=== PATIENT | female | born 1945 | race Caucasian/White ===

== ENCOUNTER 2016-10-21 08:52 | Outpatient (CLI) | payer MEDICARE ==
[2016-10-21 12:52] LABS: Hemoglobin A1c 5.7 % (4.0-6.0)
== END 2016-10-21 08:53 | disposition home or self-care (01) ==
LOC: NAVSJIPCSP 08:52
PROVIDERS: ATTEND Internal Medicine
DX: E11.40 Type 2 diabetes mellitus with diabetic neuropathy, unspecified (principal); E78.5 Hyperlipidemia, unspecified; Z79.899 Other long term (current) drug therapy
CPT/HCPCS: 36415; 80061; 83036

== ENCOUNTER 2017-01-06 09:23 | Outpatient (CLI) | payer MEDICARE ==
[2017-01-06 13:10] LABS: #Eosinphils 0.1 thou/uL (0.0-0.7); #Monocytes 0.5 thou/uL (0.11-0.59); #Neutrophils 5.7 thou/uL (1.40-6.50); %Basophils 0.4 % (0.0-1.0); %Eosinophils 1.6 % (0.0-10.0); %Lymphocytes 23.6 % (21.0-51.0); %Monocytes 5.7 % (0.0-10.0); %Neutrophils 68.6 % (42.0-75.0); Hemoglobin 12.2 g/dL (12.0-16.0); Mean Corpuscular HGB CONC 32.4 g/dL (32.0-36.0); Mean Corpuscular Hemoglobin 27.9 pg (27.0-31.0); Mean Corpuscular Volume 86.3 fl (81.0-99.0); Mean Platelet Volume 8.1 fL (7.4-10.4); Platelet Count 292 thou/uL (130-400); RBC Distribution Width 13.4 % (11.5-14.5); Red Blood Cell (RBC) Count 4.37 mill/uL (4.20-5.40); White Blood Cell (WBC) Count 8.3 thou/uL (4.8-10.8)
[2017-01-06 13:43] LABS: ALT (SGPT) 20 U/L (0-55); AST (SGOT) 16 U/L (5-34); Albumin 4.3 g/dL (3.4-4.8); Alkaline Phosphatase 90 U/L (40-150); Anion Gap 17 mmol/L (10-20); BUN (Urea Nitrogen) 12 mg/dL (9.8-20.1); Bilirubin, Total 0.4 mg/dL (0.2-1.2); Calc. Creatinine Clearance 0 mL/min (70-130); Calcium 9.3 mg/dL (7.8-10.44); Carbon Dioxide 22 mmol/L (23-31); Cardiac Risk 3.4 (Less than 4.5); Chloride 108 mmol/L (98-107); Cholesterol 172 mg/dL (< 200 Desired); Estimated GFR-MDRD 81; Globulin 2.7 g/dL (2.4-3.5); Glucose 113 mg/dL (83-110); HDL Cholesterol 51 mg/dL (>60 Neg Risk); LDL Cholesterol, Calculated 98 mg/dL; Potassium 4.3 mmol/L (3.5-5.1); Sodium 143 mmol/L (136-145); Triglycerides 117 mg/dL (Less than 150)
[2017-01-06 13:44] LABS: Bilirubin Negative (Negative); Blood, Urine Negative (Negative); Clarity Clear (Clear); Glucose, Urine (Dipstick) Negative (Negative); Leukocyte Negative (Negative); Nitrite Negative (Negative); Protein, Urine (Dipstick) Negative (Neg-Trace); Specific Gravity, Urine 1.015 (1.005-1.030); Urobilinogen 0.2 mg/dL (0.2-1.0)
[2017-01-06 18:26] LABS: Creatinine, Urine 75.21 mg/dL (47-110); Microalbumin Urine Less than 1.0 mg/dL (0.5-50.0); Microalbumin/Creat Ratio 13.3 mg/g (Less than 30)
== END 2017-01-06 09:24 | disposition home or self-care (01) ==
LOC: NAVSJIPCSP 09:23
PROVIDERS: ATTEND Internal Medicine
DX: E78.5 Hyperlipidemia, unspecified (principal); I11.9 Hypertensive heart disease without heart failure; E11.40 Type 2 diabetes mellitus with diabetic neuropathy, unspecified; Z79.899 Other long term (current) drug therapy
CPT/HCPCS: 36415; 80053; 80061; 81003; 82043; 83036; 85025

== ENCOUNTER 2017-03-30 12:56 | Outpatient (CLI) | payer MEDICARE ==
[2017-03-30 19:08] LABS: #Basophils 0.1 thou/uL (0.0-0.2); #Eosinphils 0.1 thou/uL (0.0-0.7); #Lymphocytes 1.7 thou/uL (1.20-3.40); #Monocytes 0.4 thou/uL (0.11-0.59); #Neutrophils 5.6 thou/uL (1.40-6.50); %Basophils 0.7 % (0.0-1.0); %Eosinophils 1.8 % (0.0-10.0); %Lymphocytes 21.6 % (21.0-51.0); %Monocytes 5.2 % (0.0-10.0); %Neutrophils 70.7 % (42.0-75.0); Hemoglobin 11.5 g/dL (12.0-16.0); Mean Corpuscular HGB CONC 30.8 g/dL (32.0-36.0); Mean Corpuscular Hemoglobin 26.4 pg (27.0-31.0); Mean Corpuscular Volume 85.8 fl (81.0-99.0); Mean Platelet Volume 7.4 fL (7.4-10.4); Platelet Count 330 thou/uL (130-400); RBC Distribution Width 13.6 % (11.5-14.5); Red Blood Cell (RBC) Count 4.36 mill/uL (4.20-5.40); White Blood Cell (WBC) Count 7.9 thou/uL (4.8-10.8)
== END 2017-03-30 12:57 | disposition home or self-care (01) ==
LOC: NAVSJIPCSP 12:56
PROVIDERS: ATTEND Allergy & Immunology
DX: J30.9 Allergic rhinitis, unspecified (principal); J06.9 Acute upper respiratory infection, unspecified
CPT/HCPCS: 82785; 85025

== ENCOUNTER 2017-04-15 10:12 | Outpatient (CLI) | payer MEDICARE ==
[2017-04-15 12:55] LABS: Cardiac Risk 2.8 (Less than 4.5)
[2017-04-15 14:52] LABS: Hemoglobin A1c 6.3 % (4.0-6.0)
== END 2017-04-15 10:13 ==
LOC: NAVSJIPCSP 10:12
PROVIDERS: ATTEND Internal Medicine
DX: Z12.11 Encounter for screening for malignant neoplasm of colon (principal); E78.5 Hyperlipidemia, unspecified; E11.40 Type 2 diabetes mellitus with diabetic neuropathy, unspecified; Z79.899 Other long term (current) drug therapy
CPT/HCPCS: 36415; 80061; 83036

== ENCOUNTER 2017-04-20 11:05 | Outpatient (CLI) | payer MEDICARE | END 2017-04-20 11:06 | disposition home or self-care (01) | LOC: NAVSJIPCSP 11:05 | PROVIDERS: ATTEND Internal Medicine | DX: Z12.11 Encounter for screening for malignant neoplasm of colon (principal); E78.5 Hyperlipidemia, unspecified; E11.40 Type 2 diabetes mellitus with diabetic neuropathy, unspecified; Z79.899 Other long term (current) drug therapy | CPT/HCPCS: 82274 ==